=== PATIENT | male | born 1975 | race American Indian/Alaskan Native ===

== ENCOUNTER 2019-08-11 12:32 | Emergency (ER) | payer MEDICARE ==
--- NOTE | 2019-08-11 13:14 | Event Note ---
ED Screening Note ED Screening Note: N/V that began in june no diarrhea able to keep water down normal BM yesterday no fever no abd pain no recent travel PMHx learning disability, HTN, bipolar no allergies to meds no HI/SI +marijuana This initial assessment/diagnostic orders/clinical plan/treatment(s) is/are subject to change based on patients health status, clinical progression and re- assessment by fellow clinical providers in the ED. Further treatment and workup at subsequent clinical providers discretion. Patient/guardian urged not to elope from the ED as their condition may be serious if not clinically assessed and managed. Initial orders include: labs, UA
[2019-08-11] MEDS ORDERED: ONDANSETRON 4 MG/2 ML INJ IV ONE (14:13)
[2019-08-11] MEDS ORDERED: MORPHINE 4 MG/1 ML INJ IV ONE (14:13)
[2019-08-11] MEDS ORDERED: SODIUM CHLORIDE 0.9% 1000 ML 1,000 ML IV ONE (14:13)
[2019-08-11 14:49] LABS: Basophils # (Auto) 0.1 K/mm3 (0.0-0.1); Basophils % (Auto) 0.4 % (0.0-1.8); Eosinophils # (Auto) 0.1 K/mm3 (0.0-0.4); Eosinophils % (Auto) 0.4 % (0.0-4.3); Hematocrit 48.1 % (35.5-45.6); Hemoglobin 16.1 gm/dl (11.8-15.2); Mean Corpuscular HGB Conc 34 % (32-34); Mean Corpuscular Volume 95 fl (84-94); Monocytes # (Auto) 1.1 K/mm3 (0.0-0.8); Monocytes % (Auto) 7.4 % (0.0-7.3); Platelet Count 285 K/mm3 (140-440); Red Blood Count 5.06 M/mm3 (3.65-5.03); Red Cell Distribution Width 13.9 % (13.2-15.2)
[2019-08-11 15:03] LABS: Albumin 4.7 g/dL (3.9-5); Calcium 10.5 mg/dL (8.4-10.2)
--- NOTE | 2019-08-11 15:07 | Emergency Department Report ---
ED Abdominal Pain HPI - General Chief Complaint: Nausea/Vomiting/Diarrhea Stated Complaint: VOMIT Time Seen by Provider: 08/11/19 13:12 Source: patient Mode of arrival: Ambulatory Limitations: No Limitations - History of Present Illness Initial Comments: This is a 44-year-old male nontoxic, well nourished in appearance, no acute signs of distress presents to the ED with c/o of intermittent nausea and vomiting and abdominal pain 2 weeks. Patient stated that he was in [facility] and was told that he has a cyst in his abdominal area. Chantal stated he also had a upper endoscopy by a primary operator and [facility] and stated also has a ulcer. Patient describes vomiting as food content and yellow gastric acid. Patient describes abdominal pain as cramping and aching with level of 8/10 diffuse. Denies any pain radiation. Patient denies chest pain, short of breath, fever, chills, headache, stiff neck, numbness or tingling. Patient denies any diarrhea or constipation. Deneis any urinary symptoms. Patient denies any recent travels. Patient denies any allergies with PMH of HTN. MD Complaint: abdominal pain -: week(s) (2) Location: diffuse Radiation: none Migration to: no migration Severity: mild Severity scale (0 -10): 8 Quality: cramping, aching Consistency: constant Improves With: nothing Worsens With: nothing Associated Symptoms: nausea, vomiting. denies: diarrhea, fever, chills, constipation, dysuria, hematemesis, hematochezia, melena, hematuria, anorexia, syncope - Related Data Previous Rx's Medication Instructions Recorded Last Taken Type Acetaminophen/Codeine [Tylenol 1 tab PO Q6H PRN #12 tab 08/11/19 Unknown Rx /Codeine # 3 tab] Ondansetron [Zofran Odt] 4 mg PO Q8HR PRN #20 tab.rapdis 08/11/19 Unknown Rx Sulfamethoxazole/Trimethoprim 1 each PO BID #14 tablet 08/11/19 Unknown Rx [Bactrim DS TAB] Allergies Allergy/AdvReac Type Severity Reaction Status Date / Time No Known Allergies Allergy Verified 08/11/19 13:15 ED Review of Systems ROS: Stated complaint: VOMIT Other details as noted in HPI Constitutional: denies: chills, fever Eyes: denies: eye pain, eye discharge, vision change ENT: denies: ear pain, throat pain Respiratory: denies: cough, shortness of breath, wheezing Cardiovascular: denies: chest pain, palpitations Endocrine: no symptoms reported Gastrointestinal: abdominal pain, nausea, vomiting. denies: diarrhea Genitourinary: denies: urgency, dysuria Musculoskeletal: denies: back pain, joint swelling, arthralgia Skin: denies: rash, lesions Neurological: denies: headache, weakness, paresthesias Psychiatric: denies: anxiety, depression Hematological/Lymphatic: denies: easy bleeding, easy bruising ED Past Medical Hx - Past Medical History Hx Hypertension: Yes Hx Psychiatric Treatment: Yes (BIPOLAR SCHIZPHOREN[facility]) - Surgical History Additional Surgical History: KNEE - Social History Smoking Status: Current Every Day Smoker Substance Use Type: Marijuana - Medications Home Medications: Home Medications Medication Instructions Recorded Confirmed Last Taken Type Acetaminophen/Codeine [Tylenol 1 tab PO Q6H PRN #12 tab 08/11/19 Unknown Rx /Codeine # 3 tab] Ondansetron [Zofran Odt] 4 mg PO Q8HR PRN #20 tab.rapdis 08/11/19 Unknown Rx Sulfamethoxazole/Trimethoprim 1 each PO BID #14 tablet 08/11/19 Unknown Rx [Bactrim DS TAB] ED Physical Exam - General Limitations: No Limitations General appearance: alert, in no apparent distress - Head Head exam: Present: atraumatic, normocephalic - Eye Eye exam: Present: normal appearance - Neck Neck exam: Present: normal inspection, full ROM. Absent: tenderness, meningismus, lymphadenopathy - Respiratory Respiratory exam: Present: normal lung sounds bilaterally. Absent: respiratory distress, wheezes, rales, rhonchi, stridor, chest wall tenderness, accessory muscle use, decreased breath sounds, prolonged expiratory - Cardiovascular Cardiovascular Exam: Present: regular rate, normal rhythm, normal heart sounds. Absent: bradycardia, tachycardia, irregular rhythm, systolic murmur, diastolic murmur, rubs, gallop - GI/Abdominal GI/Abdominal exam: Present: soft, normal bowel sounds. Absent: distended, tenderness, guarding, rebound, rigid, diminished bowel sounds - Rectal Rectal exam: Present: deferred - Extremities Exam Extremities exam: Present: normal inspection, full ROM, normal capillary refill. Absent: tenderness - Back Exam Back exam: Present: normal inspection, full ROM. Absent: tenderness, CVA tenderness (R), CVA tenderness (L), muscle spasm, paraspinal tenderness, vertebral tenderness, rash noted - Neurological Exam Neurological exam: Present: alert, oriented X3, normal gait - Psychiatric Psychiatric exam: Present: normal affect, normal mood - Skin Skin exam: Present: warm, dry, intact, normal color. Absent: rash ED Course Vital Signs 08/11/19 08/11/19 12:40 15:12 Temperature 98.3 F Pulse Rate 77 57 L Respiratory 19 17 Rate Blood Pressure 98/55 Blood Pressure 118/59 [Left] O2 Sat by Pulse 98 Oximetry - Reevaluation(s) Reevaluation #1: 08/11/19 16:49 Patient is speaking in full sentences with no signs of distress noted. - Consultations Consultation #1: 08/11/19 16:33 Patient has been consulted with Dr. San about patient history, physical ex am, and labs/CT results and examined and screened patient and agrees to ED plan of care and discharge plan of care. ED Medical Decision Making - Lab Data Result diagrams: 08/11/19 14:30 08/11/19 14:30 - Medical Decision Making This is a 44-year-old male that presents with UTI, abdominal pain and n/v. Patient is stable and was examined by me. There is no abdominal tenderness. Negative signs of symptoms of appendicitis. Labs obtained. GFR and creatinine levels abnormal which may be related to nausea vomiting. UA obtained. Gonorrhea and chlamydia sent and pending. Urine culture pending. Patient received Rocephin IV and azithromycin in the ER. Patient consutled with Dr. San and agrees to the ED plan of care and discharge. CT of abdomen obtained and dictated by the radiologist. Patient is notified of the report with no questions noted by the patient. Vital signs are stable prior to discharge. Patient received medical treatment in the ED which patient stated symptoms has resovled and subsided. Was instructed note to operate any machinery due to possible drowsiness and stated someone will drive the patient home. A by mouth challenge has been obtained and patient tolerated well with no nausea vomiting. Patient was also instructed to Follow-up with a primary operator doctor in 3-5 days or if symptoms worsen and continue return to emergency room as soon as possible. At time of discharge, the patient does not seem toxic or ill in appearance. No acute signs of distress noted. Patient agrees to discharge treatment plan of care. No further questions noted by the patient. Critical care attestation.: If time is entered above; I have spent that time in minutes in the direct care of this critically ill patient, excluding procedure time. ED Disposition Clinical Impression: UTI (urinary tract infection) Qualifiers: Urinary tract infection type: site unspecified Hematuria presence: without hematuria Qualified Code(s): N39.0 - Urinary tract infection, site not specified Abdominal pain Qualifiers: Abdominal location: unspecified location Qualified Code(s): R10.9 - Unspecified abdominal pain Nausea & vomiting Qualifiers: Vomiting type: unspecified Vomiting Intractability: non-intractable Qualified Code(s): R11.2 - Nausea with vomiting, unspecified Disposition: TO HOME OR SELFCARE Is pt being admited?: No Does the pt Need Aspirin: No Condition: Stable Instructions: Urinary Tract Infection in Men (ED), Acute Nausea and Vomiting (ED), Acute Abdominal Pain (ED) Additional Instructions: Follow-up with a primary operator doctor in 3-5 days or if symptoms worsen and continue return to emergency room as soon as possible. Prescriptions: Sulfamethoxazole/Trimethoprim [Bactrim DS TAB] 1 each PO BID #14 tablet Acetaminophen/Codeine [Tylenol /Codeine # 3 tab] 1 tab PO Q6H PRN #12 tab PRN Reason: Pain , Severe (7-10) Ondansetron [Zofran Odt] 4 mg PO Q8HR PRN #20 tab.rapdis PRN Reason: Nausea Referrals: PRIMARY CAREMD [Referring] - 3-5 Days SHIVA HIGH MD [Staff Physician] - 3-5 Days [facility] [Outside] - 3-5 Days [facility] [Outside] - 3-5 Days [facility] [Provider Group] - 3-5 Days Forms: Work/School Release Form(ED)
[2019-08-11 15:13] VITALS: BP 118/59
[2019-08-11] MEDS ORDERED: POTASSIUM CHLORIDE ER 20 MEQ TAB PO ONE (15:43)
[2019-08-11 15:56] LABS: Bacteria,Urine 1+ /HPF (Negative); Mucus,Urine 2+ /HPF; Sperm,Urine FEW /HPF (NP)
[2019-08-11 16:00] LABS: Color,Urine Yellow (Yellow); PH,Urine 6.5 (5.0-7.0)
[2019-08-11 16:01] LABS: Ictotest,Urine Negative (Negative); Urobilinogen,Urine < 2.0 mg/dL (<2.0)
--- NOTE | 2019-08-11 16:15 | Cat Scan Report ---
CT abdomen pelvis w con INDICATION: Abdominal pain for several months, vomiting after meals. TECHNIQUE: All CT scans at this location are performed using the following dose modulation technique: Automated exposure control. Helical slices were obtained through the abdomen and pelvis. 100 cc of Omnipaque 30 0 is administered. COMPARISON: None available. FINDINGS: Abdomen: The lung bases are clear. 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 This measures approximately 2.9 cm. There is an 8 mm hypodensity superior left lobe which is too small to characterize but likely represents a cyst. There is an additional tiny hypodensity in the right lobe is also too small to characterize but also likely a cyst. The spleen, pancreas, adrenal glands, and kidneys are unremarkable. The stomach is distended with flu id and food. There is some apparent wall thickening noted in the distal stomach and duodenal bulb. I suspect that there is an ulcer in this location, series 2 image 56 and series 601 image 39. There is no free air and there are no abnormal fluid collections. Pelvis: There is no obstruction or inflammation. There are no abnormal fluid collections. The appendi x is unremarkable. On review of bone windows, no acute osseous abnormalities are seen. IMPRESSION: 1. There is wall thickening noted in the distal aspect of the gastric antrum and duodenal bulb. I chi pect that there is an ulcer in this location. There is no free air. There are no abnormal fluid colle ctions. The stomach is distended with fluid and food Signer Name: Addison Valentino MD Signed: 08/11/2019 4:11 PM Workstation Name: [id number]
[2019-08-11 16:22] LABS: Amphetamine Screen,Urine PRESUMPTIVE NEGATIVE; Benzodiazepines Screen,Urine PRESUMPTIVE NEGATIVE; Cannabinoid Screen,Urine PRESUMPTIVE NEGATIVE; Cocaine Screen,Urine PRESUMPTIVE NEGATIVE; Methadone Screen,Urine PRESUMPTIVE NEGATIVE; Opiate Screen,Urine PRESUMPTIVE NEGATIVE
[2019-08-11] MEDS ORDERED: cefTRIAXone/NS 1 GM/50 ML 1 GM/50 ML BAG IV ONE (16:22)
[2019-08-11] MEDS ORDERED: AZITHROMYCIN 250 MG TAB PO ONE (16:22)
== END 2019-08-11 17:57 | disposition home or self-care (01) ==
LOC: ED 12:32
DX: N39.0 Urinary tract infection, site not specified (principal); F31.9 Bipolar disorder, unspecified; F20.9 Schizophrenia, unspecified; I10 Essential (primary) hypertension; F17.200 Nicotine dependence, unspecified, uncomplicated; F12.10 Cannabis abuse, uncomplicated; Z79.899 Other long term (current) drug therapy
CPT/HCPCS: 36415; 74177; 80053; 80307; 81001; 83690; 85025; 87086; 96361; 96365; 96375; 99284; J0696; J2405; J7030; Q9967; J2270